=== PATIENT | female | born 1965 | race Caucasian/White ===

== ENCOUNTER 2023-06-24 15:13 | Outpatient (RCR) | payer OTHER, SELFPAY | END 2023-06-24 23:59 | disposition home or self-care (01) | LOC: RPT 15:13 | PROVIDERS: ATTENDING PHYSICIAN Family Medicine; FAMILY PHYSICIAN Family Medicine | DX: N39.3 Stress incontinence (female) (male) (principal); N94.10 Unspecified dyspareunia; Z73.6 Limitation of activities due to disability; R27.8 Other lack of coordination; M62.81 Muscle weakness (generalized) | CPT/HCPCS: 97110; 97140; 97530 ==

== ENCOUNTER 2023-07-22 18:43 | Outpatient (RCR) | payer OTHER, SELFPAY | END 2023-07-22 23:59 | disposition home or self-care (01) | LOC: RPT 18:43 | PROVIDERS: ATTENDING PHYSICIAN Family Medicine; FAMILY PHYSICIAN Family Medicine | DX: N39.3 Stress incontinence (female) (male) (principal); N94.10 Unspecified dyspareunia; Z73.6 Limitation of activities due to disability; R27.8 Other lack of coordination; M62.81 Muscle weakness (generalized) | CPT/HCPCS: 97110; 97140; 97530 ==

== ENCOUNTER 2023-08-05 15:19 | Outpatient (RCR) | payer OTHER, SELFPAY | END 2023-08-05 23:59 | disposition home or self-care (01) | LOC: RPT 15:19 | PROVIDERS: ATTENDING PHYSICIAN Family Medicine; FAMILY PHYSICIAN Family Medicine | DX: N39.3 Stress incontinence (female) (male) (principal); N94.10 Unspecified dyspareunia; R27.8 Other lack of coordination; M62.81 Muscle weakness (generalized); Z73.6 Limitation of activities due to disability | CPT/HCPCS: 97110; 97530 ==

== ENCOUNTER → 2023-08-08 17:40 | Outpatient (REF) | payer OTHER, SELFPAY | LOC: HWWDC 17:40 | PROVIDERS: ATTENDING PHYSICIAN Specialist; FAMILY PHYSICIAN Family Medicine | DX: Z12.31 Encounter for screening mammogram for malignant neoplasm of breast (principal) | CPT/HCPCS: 77063; 77067 ==

== ENCOUNTER 2023-08-18 20:15 | Emergency (ER) | payer OTHER, SELFPAY ==
[2023-08-18 20:17] VITALS: BP 175/101; BMI 38.5
--- NOTE | 2023-08-18 21:28 | ED.GENMED ---
History of Present Illness
General
Chief Complaint: Extremity Pain (non-traumatic)
Source: patient
Exam Limitations: none
Time Seen by Provider: 08/18/23 21:12
Travel History
Have you had any contact with someone who has COVID-19?: No
Do you have any symptoms of coronavirus? Fever > 100 degrees, chills, cough, shortness of breath, sore throat, loss of taste or smell, muscle aches, or headache?: No
History of Present Illness
History of Present Illness:
See MDM
Past History
Past History
ED Past Medical History: HTN
ED Past Surgical History: Orthopedic
Social History
Tobacco: Non-smoker
Alcohol: None
Phy Exam
Physical Exam
Physical Exam:
See MDM
Course
Orders/Labs/Results
Orders:
Orders
08/18/23 20:17
Thumb/Finger 2 View Rt [CR Finger(s)/thumb Min 2 Vw Rt] Urgent
Comment: n
Reason For Exam: t
Vital Signs
Initial and Last Documented VS:
Initial Vital Signs
Temp Pulse Resp BP Pulse Ox
98.3 F 85 16 175/101 99
08/18/23 20:17 08/18/23 20:17 08/18/23 20:17 08/18/23 20:17 08/18/23 20:17
Last Documented Vital Signs
Temp Pulse Resp BP Pulse Ox
98.3 F 85 16 175/101 99
08/18/23 20:17 08/18/23 20:17 08/18/23 20:17 08/18/23 20:17 08/18/23 20:17
MDM/Problems Addressed
Differential Diagnosis Includes:
HPI and MDM Narrative:
58-year-old female presenting with right thumb injury. Patient tripped over her dog and bent her right thumb backwards. She complains of pain. She denies numbness or tingling. She is right-hand dominant
On exam, she has mild pain with thumb abduction but the thumb is otherwise neurovascularly intact. X-ray negative for fracture. Discussed likely sprain. Will place in thumb spica and discussed follow-up with hand if symptoms persist
Physical exam
General: Well appearing and non-toxic
HEENT: protecting airway
Neck: appears supple
CV: No evidence of cyanosis
Resp: No accessory muscle use
Abd: Non-distended
Extremities: Tenderness to proximal right thumb. Finger is neurovascularly intact. Mild tenderness with abduction. Flexion and extension intact. No snuffbox tenderness
Neuro: alert
Psych: Normal affect
Skin: Intact
Problems Addressed including Acute and Chronic Conditions affecting care:
1. Thumb sprain
Acuity: acute
Prognosis: stable
Details: X-ray negative for fracture. Will place in thumb spica splint and discussed follow-up with hand if symptoms persist
Differential Diagnosis (but not limited to): Thumb sprain, thumb
Testing considered: Hand x-ray
Drug therapy (if applicable): OTC meds, please see d/c instruction regarding Rx drugs
Amount and/or Complexity of Data Reviewed
Clinical info obtained from: Patient
External data reviewed: N/A
Labs I independently reviewed (but not limited to): N/A
Radiology: X-ray independently reviewed: No fracture on thumb x-ray noted
Pulse Ox: not hypoxic
EKG independently reviewed: N/A
Solar Sales Representative And Assessor: N/A
Critical Care: N/A
Risk of Complication:
Social Determinants of health: Good social support
Discussed with other providers: N/A
Escalation of Care includes Admit/Obs: After being observed in the Emergency Department, pt stable for discharge.
Occasional wrong word or 'sound a like' substitutions may have occurred due to the inherent limitations of voice recognition software. Read the chart carefully and recognize, using context, where substitutions have occurred.
*Critical Care Note
Total Time (30-74mins, 75-104mins- exclusive of procedures): Not Applicable
ED Attending Note
-
Portions of this chart may have been created with voice recognition software.� Occasional wrong word or��sound alike� substitutions may have occurred due to the inherent limitations of voice recognition software.
Discharge Plan
Departure
Patient Disposition: Home (Routine Discharge)
Date of Disposition: 08/18/23
Time of Disposition: 21:32
Patient with high blood pressure during this ER visit?: Yes
Discharge Problem:
Sprain of right thumb
Instructions: Thumb Sprain ED, BLOOD PRESSURE
Referrals:
Julio Goodwin DO [Family Provider] -
Jalen Chan MD [Active] -
Activity Restrictions/Additional Instructions:
Please return for any worsening symptoms.
You may return at any time if you have further concerns.
Please follow up with your doctor at the first available appointment, preferably this week. If symptoms persist, please make an appointment with the hand surgeon.
Please use the splint for comfort.
Thank you for choosing [facility].
Interventions
Interventions:
*Risk Screen - Suicide Last Done: 08/18/23 20:17
*General Assessment Last Done: 08/18/23 20:59
*Neglect/Abuse Screening Last Done: 08/18/23 20:17
ED- Fall Risk Assessment Last Done: 08/18/23 21:01
*ED COVID-19 Vaccine History Last Done: 08/18/23 20:17
ED-Musculoskeletal Assessment Last Done: 08/18/23 20:59
ED-Peripheral Vascular Assessment Last Done: 08/18/23 20:59
ED-Skin Assessment Last Done: 08/18/23 20:59
[2023-08-18] MEDS: MOTRIN 600 MG PO (21:34)
[2023-08-18 21:41] VITALS: BP 166/86
== END 2023-08-18 21:42 | disposition home or self-care (01) ==
LOC: EMR 20:15
PROVIDERS: EMERGENCY PHYSICIAN Student in an Organized Health Care Education/Training Program; FAMILY PHYSICIAN Family Medicine
DX: S63.601A Unspecified sprain of right thumb, initial encounter (principal); W01.0XXA Fall on same level from slipping, tripping and stumbling without subsequent striking against object, initial encounter; I10 Essential (primary) hypertension
CPT/HCPCS: 99283; 29125; 73140

== ENCOUNTER → 2023-10-22 07:53 | Outpatient (REF) | payer OTHER, SELFPAY | LOC: HWRAD 07:53 | PROVIDERS: ATTENDING PHYSICIAN Urology; FAMILY PHYSICIAN Family Medicine | DX: N39.46 Mixed incontinence (principal); N94.10 Unspecified dyspareunia; N20.0 Calculus of kidney; N95.8 Other specified menopausal and perimenopausal disorders | CPT/HCPCS: 76770 ==

== ENCOUNTER → 2023-11-20 07:32 | Outpatient (REF) | payer OTHER, SELFPAY | LOC: HWRAD 07:32 | PROVIDERS: ATTENDING PHYSICIAN Urology; FAMILY PHYSICIAN Family Medicine | DX: R93.49 Abnormal radiologic findings on diagnostic imaging of other urinary organs (principal); N18.31 Chronic kidney disease, stage 3a | CPT/HCPCS: 74176 ==

== ENCOUNTER 2024-02-12 12:29 | Day surgery (SDC) | payer OTHER, SELFPAY ==
[2024-02-12] VITALS (20 sets, daily range): BP systolic 124–167; BP diastolic 52–101; BMI 36.7
--- NOTE | 2024-02-12 08:43 | ED.GENMED ---
History of Present Illness
General
Chief Complaint: Abdominal Pain
Source: patient
Exam Limitations: none
Time Seen by Provider: 02/12/24 08:19
Nursing documentation reviewed up to this point in time: agreed with
History of Present Illness
History of Present Illness:
pt is a 58 y/o F
with h/o CKD, htn
R sided mid abd pain since yesterday afternooon around 2 pm
thought it was gas pain, tried gasex without relief
worsening throughout the evening, fever to 100.6 at night, no meds taken
today appetite ok, no vomiting, diarrhea, but pain is worse with movement, deep breathing
nothing taken for pain
holding her abdomen for bumps in the carride
no cp, sob, cough, urinary sypmtoms
s/p cholcystectomy int he past
no h/o known diverticulosis
Past History
Past History
ED Past Medical History: HTN and Other (CKD)
ED Past Surgical History: Cholecystectomy and Orthopedic
Social History
Tobacco: Non-smoker
Alcohol: None
Review of Systems
Review of Systems
Allergies reviewed?: Yes
All Other Systems: Not applicable
Phy Exam
Physical Exam
Physical Exam:
GENERAL: Alert , in no apparent distress
EYE: pupils equal and reactive
NECK: Supple
ENT: o/p clr, mmm.
CARDIAC: Regular rate and rhythm .
LUNGS: Clear breath sounds bilaterally, no acute respiratory distress, no wheezes/rales/rhonchi
ABDOMEN: Soft, moderate right-sided abdominal tenderness with some voluntary guarding, no r/g, no cvat, normal bowel sounds
NEUROLOGICAL: Alert and oriented, no focal neuro deficits
SKIN: Warm and dry, skin intact.
MUSCULOSKELETAL: No edema, well perfused. neg shay's sign
PSYCH: Normal and appropriate interaction.
Sepsis
Sepsis Screening
Sepsis Assessment: Sepsis Ruled Out
Sepsis Screen
Sepsis Screen: Sepsis Ruled Out
Date: 02/12/24
Time: 12:42
Course
Orders/Labs/Results
Orders:
Orders
02/12/24 08:37
CMP [Comprehensive Metabolic Panel] Urgent
Complete Blood Count/With Diff Urgent
Lactic Acid Urgent
02/12/24 08:38
Iohexol [Omnipaque] See Protocol PO NOW STA
02/12/24 08:39
CT Abd/pel W Iv And Oral Contr Urgent
Comment:
Reason For Exam: rlq pain, fever
02/12/24 08:45
0.9% Sodium Chloride 1000 ml [Nss] 1,000 ml IV BOLUS
02/12/24 10:34
Urinalysis Reflex To Culture Urgent
Date Specimen was Collected: 02/12/24
Time Specimen was Collected: 08:47
02/12/24 11:39
Piperacillin/Tazo 3.375 Gram [Zosyn] 3.375 gram in 50 ml IV NOW
02/12/24 12:11
Admit/Transfer Patient As Directed
Co-Sign Provider:
Level of Care: Inpatient admission
Assign to:: Medical/Surgical
Physician / Group: Hospitalist
Diagnosis: appendicitis
Reason for Hospitalization: appendicitis
Expected length of stay greater than two midnights?: Yes
ELOS- Estimated Length of Stay in days: 3
I certify the patient meets the requirements for IP care: Yes
PRN Pain Medication Management As Directed
May give lesser potent ordered pain med per pt: Yes
preference::
Protocol:: Medication orders for pain may be administered in a
manner that supports deferring to patient preference
when the pt is:
- Requesting an ordered lesser potent pain medication.
Least to most potent pain medications are defined
as: acetaminophen < NSAID < tramadol < opioids
(morphine, oxycodone, hydromorphone).
- Requesting a lesser dose of the same medication IF
ORDERED.
- Requesting a less intrusive route of administration
if both routes are prescribed by the provider (PO <
IV).
02/12/24 12:12
Code Status As Directed
Resuscitation Status: Full Code
02/12/24 12:16
Consult Surgery [SURGICAL CONSULT] Urgent
Consulting Provider: Jw Saxena
Was physician already notified: Yes
Reason for consult: Appendicitis
Abnormal Lab Results
02/12/24
08:37
Hct 36.6 L %
(37.0-47.0)
MPV 10.9 H fL
(7.4-10.4)
Absolute Monos (auto) 0.8 H 10^3/uL
(0.1-0.6)
Lymphocytes % 17.6 L %
(20.5-51.1)
BUN 30 H mg/dl
(7-17)
Creatinine 1.4 H mg/dL
(0.6-1.0)
Glucose 119 H mg/dl
(70-99)
Calcium 10.3 H mg/dl
(8.4-10.2)
02/12/24 08:37
02/12/24 08:37
Vital Signs
Initial and Last Documented VS:
Initial Vital Signs
Temp Pulse Resp BP Pulse Ox
100.3 F 83 16 144/101 99
02/12/24 08:15 02/12/24 08:15 02/12/24 08:15 02/12/24 08:15 02/12/24 08:15
Last Documented Vital Signs
Temp Pulse Resp BP Pulse Ox
100.3 F 83 16 150/89 100
02/12/24 08:15 02/12/24 08:15 02/12/24 08:15 02/12/24 12:00 02/12/24 11:30
MDM/Problems Addressed
Differential Diagnosis Includes:
appe, diverticulitis, uti, pyelo
MDM/Problems Addressed:
58 y/o F, h/o HTN, CKD stage III,
rlq pain and fever since yesterday
mild guarding on exam but nontoxic
wbc normal, lactate neg
ct: Acute appendicitis with periappendiceal inflammation and fluid, but no focal fluid collection. No free air or periappendiceal extraluminal contrast to suggest overt perforation.
zosyn ordered
surgery dr. saxena recomennded hospitalist admit
*Critical Care Note
Total Time (30-74mins, 75-104mins- exclusive of procedures): Not Applicable
ED Attending Note
-
Portions of this chart may have been created with voice recognition software.� Occasional wrong word or��sound alike� substitutions may have occurred due to the inherent limitations of voice recognition software.
Discharge Plan
Departure
Patient Disposition: Admit
Date of Disposition: 02/12/24
Time of Disposition: 11:40
Presentation/result/management discussed w/ accepting MD/DO: Hospitalist
Patient with high blood pressure during this ER visit?: No
Condition: Fair
Covid-19: Not Applicable
Discharge Problem:
Acute appendicitis
Interventions
Interventions:
*Risk Screen - Suicide Last Done: 02/12/24 08:15
*General Assessment Last Done: 02/12/24 08:15
*Neglect/Abuse Screening Last Done: 02/12/24 08:15
ED- Fall Risk Assessment Last Done: 02/12/24 08:27
*ED COVID-19 Vaccine History Last Done: 02/12/24 08:27
CB-Yszndf-[place] Assessment Last Done: 02/12/24 08:27
[2024-02-12] MEDS: OMNIPAQUE 50 ML PO (08:44)
[2024-02-12 08:50] LABS: % Basophils 0.2 % (0-2); % Eosinophils 0.7 % (0-6); % Immature Granulocytes 0.4 % (0-0.5); % Lymphocytes 17.6 % (20.5-51.1); % Monocytes 8.8 % (1.7-9.3); % Neutrophils 72.3 % (42.2-75.2); Absolute Eosinophils 0.1 10^3/uL (0-0.7); Absolute Lymphocytes 1.5 10^3/uL (1.2-3.4); Absolute Monocytes 0.8 10^3/uL (0.1-0.6); Absolute Neutrophils 6.1 10^3/uL (1.4-6.5); Hematocrit 36.6 % (37.0-47.0); Hemoglobin 12.8 g/dL (12.0-16.0); Mean Corpuscular Hgb 30.4 pg (27.0-31.0); Mean Corpuscular Volume 86.9 fL (81.0-99.0); Mean Platelet Volume 10.9 fL (7.4-10.4); Nucleated Red Blood Cells % 0 %; Platelet Count 216 10^3/uL (130-400); Red Blood Cell Count 4.21 10^6/uL (4.20-5.40); Red Cell Dist. Width 11.9 % (11.5-14.5); White Blood Cell Count 8.5 10^3/uL (4.8-10.8)
[2024-02-12] MEDS: NSS 1000 IV ×2 (08:50→17:49)
[2024-02-12 09:18] LABS: ALT (SGPT) 17 U/L (0-35); AST (SGOT) 18 U/L (14-36); Albumin 4.6 g/dl (3.5-5.0); Alkaline Phosphatase 86 U/L (38-126); Blood Urea Nitrogen 30 mg/dl (7-17); Calcium 10.3 mg/dl (8.4-10.2); Carbon Dioxide 25 mmol/L (22-30); Chloride 102 mmol/L (98-107); Estimated Creatinine Clearance 54 ml/min; Glucose 119 mg/dl (70-99); Potassium 4.4 mmol/L (3.5-5.1); Sodium 141 mmol/L (135-145); Total Bilirubin 0.6 mg/dl (0.2-1.3); Total Protein 7.6 g/dl (6.3-8.2); eGFR 44.16
[2024-02-12 09:54] LABS: Lactic Acid 1.2 mmol/L (0.7-2.0)
[2024-02-12 11:17] LABS: Urine Albumin Negative (Neg - Trace); Urine Bilirubin Negative (Negative); Urine Character Clear (Clear); Urine Color Straw; Urine Glucose Negative (Negative); Urine Ketone Negative (Negative); Urine Leukocyte Negative (Negative); Urine Nitrite Negative (Negative); Urine Occult Blood Negative (Negative); Urine Urobilinogen Negative (Neg - 1+)
[2024-02-12] MEDS: ZOSYN 50 IV ×2 (11:53→20:32)
--- NOTE | 2024-02-12 12:18 | HPS.HSE ---
Family Physician
-
Family Physician: Julio Goodwin
Chief Complaint
-
abd pain
History of Present Illness
58yo F with PMHX of cholecystectomy, hysterectomy, HTN and recent diagnosis of hypertensive nephropathy with CKD stage 3a came with 1 day of sharp R sided abd pain and found appendicitis on CT.
Medical History
Past Medical History
Past Medical History: Reports Other
Additional Past Medical History:
See hpi
Past Surgical History: Reports Other
Additional Past Surgical History:
see hpi
Social History
Tobacco: Non-smoker
Alcohol: None
Drug: None
Family History
Family History: Not pertinent
Allergies / Home Medications
Allergies reflects when Allergies were last updated in [facility].
Home Medications with original date entered in [facility]
Allergy/Medication List:
Allergies
Allergy/AdvReac Type Severity Reaction Status Date / Time
No Known Allergies Allergy Verified 02/12/24 08:15
Home Medications
bupropion HCl 150 mg 24 hr tablet, extended release (Wellbutrin XL) 150 mg PO DAILY 02/12/24
carvedilol 6.25 mg tablet (Coreg) 6.25 mg PO BID 02/12/24
desvenlafaxine succinate 50 mg tablet,extended release 24 hr 50 mg PO DAILY 02/12/24
losartan 100 mg tablet 100 mg PO DAILY 02/12/24
torsemide 5 mg tablet 5 mg PO DAILY 02/12/24
Review of Systems
-
History Source: Patient
A 12 point ROS was completed and negative except as noted: Yes
Abdomen/GI: Reports Abdominal Pain
Physical Exam
Vital Signs
Vital Signs
Temp Pulse Resp BP Pulse Ox
100.3 F 83 16 150/89 100
02/12/24 08:15 02/12/24 08:15 02/12/24 08:15 02/12/24 12:00 02/12/24 11:30
Physical Exam
General: No Apparent Distress
HEENT: NormoCephalic
Respiratory: Clear; No Wheezes, Rales or Rhonchi
Cardiac: S1/S2 and Regular Rhythm
GI: Soft, Non Distended and Tender
Genito-urinary: No costovertebral tender
Musculoskeletal: No Clubbing, No Cyanosis and No Edema
Skin: Warm
Neuro: Awake, Alert, Oriented and AO x 3
Psych: Calm
Laboratory Results
-
02/12/24 08:37
02/12/24 08:37
Laboratory Results
Lactic Acid 1.2 mmol/L (0.7-2.0) 02/12/24 08:37
Total Bilirubin 0.6 mg/dl (0.2-1.3) 02/12/24 08:37
AST 18 U/L (14-36) 02/12/24 08:37
ALT 17 U/L (0-35) 02/12/24 08:37
Alkaline Phosphatase 86 U/L (38-126) 02/12/24 08:37
Data Reviewed
-
CT Scan: Report Reviewed by me
Impression/Plan
-
A/P:
#Acute Appendicitis
Zosyn
GenSx consult
NPO for Sx
#CKD stage 3a
follow Cr
IVF
#Essential HTN
hold diuretic and ARB for surgery
IV Hydralazine PRN
#Minimal hypercalcemia
hydrate and follow
#Anxiety/depression d/o
cont home meds
#DJD
follow with PCP
DVt ppx hep
FUll code
I have spent at least 59min reviewing chart, test results, communication with consultants and direct patient care
--- NOTE | 2024-02-12 16:21 | CON.GS ---
Consultation
-
Requesting Provider: [place]
Performing Provider: [place]
Reason for Consultation: Acute appendicitis
Medical History
-
Chief Complaint: Abd pain
History of Present Illness:
58F with acute onset abd pain localized to the right side, began yesterday at 2PM. Progressively more severe, no relief from gasX, denies f/c/n/v. Denies anorexia. Reports Tmax 100.6F last night. Pain during bumps in the road on the way into the
hospital.
Past Medical History
Past Medical History: HTN and Renal Failure
Past Surgical History: Cholecystectomy and Orthopedic
Social History
Tobacco: Non-Smoker
Alcohol: None
Personal:
Living: With Family
Family History
Family History: Reviewed & Noncontributory
Allergies / Home Medications
Allergy/AdvReac Type Severity Reaction Status Date / Time
No Known Allergies Allergy Verified 02/12/24 08:15
�Medication �Instructions �Recorded �Confirmed �Type
bupropion HCl 150 mg 24 hr tablet, 150 mg PO DAILY 02/12/24 02/12/24 History
extended release (Wellbutrin XL)
carvedilol 6.25 mg tablet (Coreg) 6.25 mg PO BID 02/12/24 02/12/24 History
desvenlafaxine succinate 50 mg 50 mg PO DAILY 02/12/24 02/12/24 History
tablet,extended release 24 hr
losartan 100 mg tablet 100 mg PO DAILY 02/12/24 02/12/24 History
torsemide 5 mg tablet 5 mg PO DAILY 02/12/24 02/12/24 History
Review of Systems
-
A 10 point review of systems was completed, and was negative except as per HPI.
Physical Exam
Vital Signs
Temp Pulse Resp BP Pulse Ox
100.3 F 83 16 141/88 99
02/12/24 08:15 02/12/24 08:15 02/12/24 08:15 02/12/24 14:00 02/12/24 14:10
02/11/24 02/12/24 02/13/24
06:59 06:59 06:59
Actual Weight 103 kg
Body Mass Index (BMI) 36.7
Lab Results
02/12/24 08:37
02/12/24 08:37
WBC 8.5 10^3/uL (4.8-10.8) 02/12/24 08:37
Hgb 12.8 g/dL (12.0-16.0) 02/12/24 08:37
Hct 36.6 % (37.0-47.0) L 02/12/24 08:37
Plt Count 216 10^3/uL (130-400) 02/12/24 08:37
Abs Immat Gran (auto) 0.0 10^3/uL (0-0.05) 02/12/24 08:37
Neutrophils % 72.3 % (42.2-75.2) 02/12/24 08:37
Physical Exam
General: Well Developed, Well Nourished and No Apparent Distress
GI: Soft, Non Distended, Tender (ttp to rlq) and Obese
Skin: Warm and Dry
Neuro: AO x 3
Psych: Calm
Data Reviewed
-
CT Scan: Image Personally Visualized and interpreted, Report Reviewed by me, Discussed with Patient and Discussed with Family
Labs: Labs Reviewed by me
Old Records: Reviewed
Assessment / Plan
-
58F with acute appendicitis
RLQ ttp
Tmax 100.6F, no leukocytosis, no left shift
CT c/w acute appendicitis without evidence of perforation
OCTOR for lap appy
Hospitalist admission
IV abx
--- NOTE | 2024-02-12 16:26 | OR.RPT ---
Operative Report
Operative Report
Primary Surgeon: [place]
Assisting: Royal LOPEZ
Pre-op Diagnosis: Acute appendicitis
Post-op Diagnosis: Same
Procedure Performed: Laparoscopic appendectomy
Anesthesia Type: GETA
Specimen / Cultures: Appendix
Estimated Blood Loss: 10cc
Complications: None immediate
Operative Findings: Inflamed appendix with dilation at mid-body down to the base, healthy distally; no purulence, no evidence of perforation
Date of Surgery: 02/12/24
Indications: This 58F developed right lower quadrant abdominal pain and on workup was found to have acute appendicitis. Laparoscopic appendectomy was elected.
Description of procedure: The patient was placed on the operating table in the supine position. General anesthesia was induced. A time-out was completed verifying correct patient, procedure, site, positioning, and special equipment prior to
beginning this procedure. An orogastric tube was placed. The abdomen was prepped and draped in the usual sterile fashion. A stab incision was made in left upper quadrant and the Veress needle was inserted. Proper position was confirmed by aspiration
and saline meniscus test. The abdomen was insufflated with carbon dioxide to a pressure of 12 mmHg. The patient tolerated insufflation well.
A 5mm optical trocar was then inserted at the left lower quadrant. The laparoscope was inserted and the abdomen inspected. No injuries from initial trocar placement or Veress needle insertion were noted. Additional trocars were then inserted in the
following locations: a 12-mm trocar at the umbilicus and a 5-mm trocar midline in the suprapubic space. The abdomen was inspected and no abnormalities were found. The table was placed in the Trendelenburg position with the right side up. The distal
appendix was healthy, more proximally it was dilated and inflamed. The tip of the appendix was gently grasped with an atraumatic grasper and retracted toward the patient�s feet and abdominal wall. This maneuver exposed the appendiceal blood supply
which was controlled with the voyant device. Following this, a laparoscopic linear cutting stapler with a 45mm giordano load was deployed and used to transect the appendix at its base. The appendix was placed in an endoscopic retrieval bag, removed
through the umbilical port, and passed off the table as a specimen.
We then turned our attention to the staple line, which was noted to be hemostatic. The pelvis was inspected and no free fluid was identified. The umbilical trocar site was closed at the fascial level laparoscopically with 2-0 PDS under direct
vision. Secondary trocars were removed under direct vision and noted to be hemostatic. The laparoscope was withdrawn and the abdomen was allowed to collapse. The skin was closed with subcuticular sutures of 4-0 monocryl and topical skin adhesive.
The orogastric tube was removed.
The patient tolerated the procedure well and was taken to the postanesthesia care unit in stable condition.
[2024-02-12] MEDS: DILAUDID 0.25 MG IV ×3 (16:58→17:41)
--- NOTE | 2024-02-12 18:14 | SUR.PHASEI ---
patient in pacu post lap appy - vss, c/o of pain - medicated x3 with lower dose of dilaudid .25mg as falls asleep mid sentence. pain now controlled and down from 11/03 to 08/03. patient sleeps . family updated. taking ice chips po.
--- NOTE | 2024-02-12 18:49 | PTCARENOTE ---
Pt arrived to [facility] from PACU s/p lap appy. Pt has 4 lap sites, all C/D/I and NATASHA. Pt on 2L NC satting 96%. IVF infusing at 75mls/hr. Pt states no pain at this time. Pt oriented to call ferreira and room, bed locked and in lowest position, call ferreira
within reach.
[2024-02-12] MEDS: HEPARIN 5000 UNITS SC (20:30)
[2024-02-12] MEDS: COREG 6.25 MG PO (20:35)
[2024-02-12] MEDS: ROXICODONE 5 MG PO (21:19)
[2024-02-13] MEDS: ZOSYN 50 IV ×2 (01:18→06:40)
[2024-02-13] MEDS: HEPARIN 5000 UNITS SC ×2 (01:18→08:14)
[2024-02-13 04:00] VITALS: BP 112/68
[2024-02-13 06:21] LABS: % Basophils 0.1 % (0-2); % Immature Granulocytes 0.6 % (0-0.5); % Lymphocytes 5.4 % (20.5-51.1); % Monocytes 3.6 % (1.7-9.3); % Neutrophils 90.3 % (42.2-75.2); Absolute Immature Granulocytes 0.1 10^3/uL (0-0.05); Absolute Lymphocytes 0.5 10^3/uL (1.2-3.4); Absolute Monocytes 0.3 10^3/uL (0.1-0.6); Absolute Neutrophils 7.6 10^3/uL (1.4-6.5); Hematocrit 34.6 % (37.0-47.0); Hemoglobin 11.7 g/dL (12.0-16.0); Mean Corp Hgb Conc. 33.8 g/dL (33.0-37.0); Mean Corpuscular Hgb 29.8 pg (27.0-31.0); Mean Platelet Volume 11.3 fL (7.4-10.4); Nucleated Red Blood Cells % 0 %; Platelet Count 200 10^3/uL (130-400); Red Blood Cell Count 3.93 10^6/uL (4.20-5.40); Red Cell Dist. Width 11.7 % (11.5-14.5); White Blood Cell Count 8.4 10^3/uL (4.8-10.8)
[2024-02-13 06:45] LABS: ALT (SGPT) 61 U/L (0-35); AST (SGOT) 55 U/L (14-36); Albumin 4.2 g/dl (3.5-5.0); Alkaline Phosphatase 96 U/L (38-126); Blood Urea Nitrogen 29 mg/dl (7-17); Calcium 9.6 mg/dl (8.4-10.2); Carbon Dioxide 25 mmol/L (22-30); Chloride 102 mmol/L (98-107); Estimated Creatinine Clearance 54 ml/min; Glucose 155 mg/dl (70-99); Potassium 4.8 mmol/L (3.5-5.1); Sodium 143 mmol/L (135-145); Total Bilirubin 0.6 mg/dl (0.2-1.3); eGFR 44.16
[2024-02-13 08:00] VITALS: BP 133/72
[2024-02-13] MEDS: NSS IV (08:13)
[2024-02-13] MEDS: WELLBUTRIN XL (24 hour extended release) 150 MG PO (08:13)
[2024-02-13] MEDS: PRISTIQ 50 MG PO (08:14)
[2024-02-13] MEDS: COREG 6.25 MG PO (08:15)
--- NOTE | 2024-02-13 09:08 | W.PN.HOSP.TC ---
Today's Communication/Plan
-
possible d/c
Assessment / Plan
Assessment / Plan
58yo F with PMHX of cholecystectomy, hysterectomy, HTN and recent diagnosis of hypertensive nephropathy with CKD stage 3a came with 1 day of sharp R sided abd pain and found appendicitis on CT. S/P appendectomy with non-perforated appendix on
02/12/24. Cr stable, Ca improved off diuretics - most likely mild dehydration 2/2 poor oral intake with abd ppain. 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
Mild postOP elevation of transaminases most likely 2/2 anesthesia. Advised to repeat blood test in 3-5 days postOP for LFT. Patient verbalized understanding of the instructions
A/P:
#Acute Appendicitis without perforation
Zosyn stop since appendectomy done
GenSx consult
#CKD stage 3a
follow Cr - stable
#Essential HTN
hold diuretic and ARB for surgery
IV Hydralazine PRN
#Minimal hypercalcemia
hydrate and follow
STop torsemide - patient to discuss with her fraud investigator and will watch BP daily - has BP monitor at home
#Anxiety/depression d/o
cont home meds
#DJD
follow with PCP
#Transaminitis
postOP - most likely anesthesia-related
can follow up with PCP with blood test in 3-5 days as outpatient
Check HepC Ab
DVT ppx hep
FUll code
I have spent at least 59min reviewing chart, test results, communication with consultants and direct patient care
Anticipated Discharge: Within 24 hours
Subjective/Interval History
-
Date of Service: February 13, 2024
Objective Data
-
Labs:
Laboratory Results
02/13/24
04:19
WBC 8.4
Hgb 11.7 L
Hct 34.6 L
Plt Count 200
Sodium 143
Potassium 4.8
Chloride 102
Carbon Dioxide 25
BUN 29 H
Creatinine 1.4 H
Glucose 155 H
Calcium 9.6
Total Bilirubin 0.6
AST 55 H
ALT 61 H
Alkaline Phosphatase 96
Vital Signs:
Vital Signs
Temp Pulse Resp BP Pulse Ox
98.5 F 87 18 133/72 98
02/13/24 08:00 02/13/24 08:00 02/13/24 08:00 02/13/24 08:00 02/13/24 08:00
I&O
02/12/24 02/13/24 02/14/24
06:59 06:59 06:59
Intake Total 1605 / 1605
Output Total 150 / 150
Balance 1455 / 1455
Review of Systems
-
History Source: Patient
All other systems: Reviewed and negative
Physical Exam
-
General: No Apparent Distress
Neuro: Awake, Alert, Oriented and AO x 3
Psych: Calm
[2024-02-13] MEDS: TYLENOL 650 MG PO (09:30)
--- NOTE | 2024-02-13 09:31 | W.PN.GS2 ---
Addendum entered and electronically signed by Lexx Mendes MD 02/13/24 09:40:
Correction:
-- DVT: SQH
Original Note:
Today's Communication / Plan
-
-- Regular diet
-- Abx: None further needed
-- Pain control: Tylenol and Oxycodone, hold on Toradol given CKD and Cr 1.4
-- HLIV
-- Home meds
-- OK for DC today from surgical perspective
Assessment / Plan
-
Patient is a 58 yo F POD#1 s/p laparoscopic appendectomy
Recovering well. No postoperative concerns.
-- Regular diet
-- Abx: None further needed
-- Pain control: Tylenol and Oxycodone, hold on Toradol given CKD and Cr 1.4
-- HLIV
-- Home meds
-- DVT: Lovenox
-- OK for DC today from surgical perspective
Subjective Data
-
Date of Service: February 13, 2024
No complaints. Pain well-controlled. No nausea or vomiting. Passing flatus and stools. Voiding.
Objective Data
-
Intake and Output
02/12/24 02/13/24 02/14/24
06:59 06:59 06:59
Intake Total 1605 / 1605
Output Total 150 / 150
Balance 1455 / 1455
Intake:
Oral fluids 530 / 530
IV fluids (Total) 975 / 975
normosol 150 / 150
IV piggybacks 100 / 100
Output:
Urine, Voided 150 / 150
Other:
Number of approximated MODERATE 2
amounts of urine
Vital Signs
Temp Pulse Resp BP Pulse Ox
98.5 F 87 18 133/72 98
02/13/24 08:00 02/13/24 08:00 02/13/24 08:00 02/13/24 08:00 02/13/24 08:00
Lab Results
02/13/24 04:19
02/13/24 04:19
Calcium 9.6 mg/dl (8.4-10.2) 02/13/24 04:19
Total Bilirubin 0.6 mg/dl (0.2-1.3) 02/13/24 04:19
AST 55 U/L (14-36) H 02/13/24 04:19
ALT 61 U/L (0-35) H 02/13/24 04:19
Alkaline Phosphatase 96 U/L (38-126) 02/13/24 04:19
Total Protein 7.0 g/dl (6.3-8.2) 02/13/24 04:19
Albumin 4.2 g/dl (3.5-5.0) 02/13/24 04:19
Physical Exam
-
Gen: NAD
Abd: soft, appropriately tender, ND, non-peritoneal, incisions c/d/i - no erythema or drainage, ecchymosis at incisions
[2024-02-13 11:44] LABS: ALT (SGPT) 50 U/L (0-35); AST (SGOT) 41 U/L (14-36); Albumin 4.2 g/dl (3.5-5.0); Alkaline Phosphatase 83 U/L (38-126); Direct Bilirubin 0.2 mg/dl (0.0-0.4); Total Bilirubin 0.5 mg/dl (0.2-1.3); Total Protein 6.9 g/dl (6.3-8.2)
[2024-02-13 11:49] VITALS: BP 116/81
--- NOTE | 2024-02-13 11:56 | W.DCSUMMARY ---
Discharge Summary
Discharge Data
Date of Admission: 02/12/24
Date of Discharge: 02/13/24
-
Pending Results: Yes
Additional Pending Results:
HepC test
Hospital Course
58yo F with PMHX of cholecystectomy, hysterectomy, HTN and recent diagnosis of hypertensive nephropathy with CKD stage 3a came with 1 day of sharp R sided abd pain and found appendicitis on CT. S/P appendectomy with non-perforated appendix on
02/12/24. Cr stable, Ca improved off diuretics - most likely mild dehydration 2/2 poor oral intake with abd ppain. Will follow up with her executive administrator.
Mild postOP elevation of transaminases most likely 2/2 anesthesia improving. Torsemide to continue and further mgmt provided by patient executive administrator. Advised to repeat blood test in 3-5 days postOP for LFT. Patient verbalized understanding of the
instructions. Medically stable for d/c home
I have spent at least 37min preparing discharge
Patient was managed for:
#Acute Appendicitis without perforation
#CKD stage 3a
#Essential HTN
#Minimal hypercalcemia
#Anxiety/depression d/o
#DJD
#Transaminitis
Discharge Plan
-
Patient Disposition: Home (Routine Discharge)
Discharge Diagnosis/Procedures: Laparoscopic appendectomy
Diet: No restrictions
Activity: No strenuous activity
Driving Restrictions: No driving for 24 hours
Bathing Restrictions: OK to Shower
Wound Care: Allow skin glue to flake off on its own
Instructions: Appendectomy, Laparoscopic Surgery (DC)
Referrals:
Jw Saxena MD [Active] - in two to four weeks
Julio Goodwin DO [Family Provider] - in three to four days (Repeat liver function tests)
Additional Discharge Medication Instructions: Use tylenol 1000mg for pain, max 4x daily. Use ice packs and/or heating pads. When this is not enough, take oxycodone 1-2 tabs.
Prescriptions:
New
oxycodone 5 mg tablet
5 - 10 mg PO Q4HPRN PRN (Reason: moderate to severe pain) Qty: 16 0RF
Continued
carvedilol [Coreg] 6.25 mg Tablet
6.25 mg PO BID
torsemide 5 mg Tablet
5 mg PO DAILY
losartan 100 mg Tablet
100 mg PO DAILY
desvenlafaxine succinate 50 mg Tablet Extended Release 24 Hr
50 mg PO DAILY
bupropion HCl [Wellbutrin XL] 150 mg Tablet Extended Release 24 Hr
150 mg PO DAILY
Discharge Orders:
Discharge Patient (As Directed); Ordered 02/13/24
Ordered By: Shaun Barahona
Discharge Date and Time
Print Language: STATELESS
--- NOTE | 2024-02-13 12:52 | CM ---
Met with patient at bedside; initial assessment completed
Pharmacy verified: [facility] @ [address] [facility]
Patient lives with spouse in a multilevel home; 5 steps to enter; 12-15 between floors; railings present; powder room 1st floor; 2nd floor master bath has tub w/shower
PLOF: independent with ambulation, stairs, and ADLs; drives
DME: CPAP; BP cuff (monitors BP daily)
No SNF or Home Health utilization history
will transport home
Plan: Discharge to home today; no needs
[2024-02-13 13:44] LABS: Hepatitis C Antibody Negative (Negative)
== END 2024-02-13 13:55 | disposition home or self-care (01) ==
LOC: PACU 12:29
PROVIDERS: Physician Assistant; ATTENDING PHYSICIAN Internal Medicine; CONSULT PHYSICIAN Surgery; EMERGENCY PHYSICIAN Emergency Medicine; FAMILY PHYSICIAN Family Medicine
PROC: 0DTJ4ZZ Resection of Appendix, Percutaneous Endoscopic Approach (ICD-10-PCS; 2024-02-12)
DX: K35.80 Unspecified acute appendicitis (principal); I12.9 Hypertensive chronic kidney disease with stage 1 through stage 4 chronic kidney disease, or unspecified chronic kidney disease; N18.31 Chronic kidney disease, stage 3a; E83.52 Hypercalcemia; F32.A Depression, unspecified; F41.9 Anxiety disorder, unspecified; M19.90 Unspecified osteoarthritis, unspecified site; E86.0 Dehydration; R74.01 Elevation of levels of liver transaminase levels; Z79.899 Other long term (current) drug therapy; Z90.49 Acquired absence of other specified parts of digestive tract
CPT/HCPCS: 44970; 88304; 74177; 80053; 80076; 81003; 83605; 85025; 86803; 96361; 96365; 99285; C1776; Q9967

== ENCOUNTER → 2024-03-31 07:33 | Outpatient (REF) | payer OTHER, SELFPAY | LOC: HWRAD 07:33 | PROVIDERS: ATTENDING PHYSICIAN Family Medicine | DX: R05.9 Cough, unspecified (principal) | CPT/HCPCS: 71046 ==

== ENCOUNTER → 2024-08-28 12:31 | Outpatient (REF) | payer OTHER, SELFPAY | LOC: HWRAD 12:31 | PROVIDERS: ATTENDING PHYSICIAN Family Medicine | DX: M79.671 Pain in right foot (principal) | CPT/HCPCS: 73630 ==